=== PATIENT | female | born 1990 | race Caucasian/White ===

== ENCOUNTER 2016-11-09 08:29 | Emergency (ER) | payer MEDICAID ==
[~2016-11-09] VITALS: Ht 162.6 cm; Wt 53.5 kg
[2016-11-09 08:30] VITALS: Ht 162.6 cm; Wt 53.5 kg
[2016-11-09 09:02] LABS: ADD UMIC NO; UR BILIRUBIN (Dip) NEGATIVE (NEGATIVE); UR BLOOD (Dip) NEGATIVE (NEGATIVE); UR CLARITY CLEAR (CLEAR); UR COLOR LT. YELLOW (YELLOW); UR GLUCOSE (Dip) NEGATIVE (NEGATIVE); UR KETONES (Dip) NEGATIVE (NEGATIVE); UR LEUKOCYTE ESTERASE (Dip) NEGATIVE (NEGATIVE); UR NITRITE (Dip) NEGATIVE (NEGATIVE); UR TOTAL PROTEIN (Dip) NEGATIVE (NEGATIVE); UR UROBILINOGEN (Dip) 0.2 E.U./dL (0.1-1.0)
[2016-11-09 09:04] LABS: ADD SCAN DIFF NO
[2016-11-09 09:08] LABS: BASOPHIL # 0.1 10^3/ul (0.0-0.1); BASOPHILS % 0.8 % (0.0-2.0); EOSINOPHILS # 0.3 10^3/ul (0.0-0.5); EOSINOPHILS % 4.5 % (0.0-7.0); HEMOGLOBIN 11.4 g/dl (12.0-16.0); LYMPHOCYTES # 1.3 10^3/ul (0.8-2.9); LYMPHOCYTES % 17.2 % (15.0-51.0); MEAN CORPUSCULAR HEMOGLOBIN 28.7 pg (29.0-33.0); MEAN CORPUSCULAR HGB CONC 34.5 g/dl (32.0-37.0); MEAN CORPUSCULAR VOLUME 83.1 fl (82.0-101.0); MEAN PLATELET VOLUME 9.2 fl (7.4-10.4); MONOCYTE # 0.3 10^3/ul (0.3-0.9); MONOCYTES % 4.5 % (0.0-11.0); NEUTROPHIL # 5.3 10^3/ul (1.6-7.5); NEUTROPHILS % 72.3 % (39.0-77.0); PLATELET COUNT 248 10^3/UL (140-415); RED BLOOD COUNT 3.97 10^6/ul (4.20-5.40); WHITE BLOOD COUNT 7.3 10^3/ul (4.8-10.8)
[2016-11-09 09:29] LABS: ALBUMIN 4.8 g/dl (3.3-4.9); ALBUMIN/GLOBULIN RATIO 1.54; BILIRUBIN,INDIRECT 0.3 mg/dl (0-1.1); BILIRUBIN,TOTAL 0.3 mg/dl (0.2-1.3); CALCIUM 9.7 mg/dl (8.4-10.2); CREATININE 0.49 mg/dl (0.44-1.00); TOTAL PROTEIN 7.9 g/dl (6.1-8.1)
--- NOTE | 2016-11-09 09:41 | ERD ---
ER Documentation Chief Complaint Date/Time DATE: 11/09/16 TIME: 09:39 Chief Complaint sent by pcp for lab works - abd pain 19 weeks HPI 25-year-old female who is 2 approximately 19 weeks comes to emergency room intermittent abdominal pain for the past 2 days. She states it is in the lower abdomen, sharp, pulling sensation in the umbilicus. She was evaluated by Dr. King and Ahsan this morning who referred her to the emergency room. She has not had any fevers, chills, vomiting or diarrhea. She does report that she has had sensitivity to multiple foods, and has had recently been eating poultry. She states that she is on multiple allergies, including bread. She denies vaginal bleeding. ROS All systems reviewed and are negative except as per history of present illness. Allergies Allergies: Coded Allergies: No Known Allergy (Unverified , 03/16/16) PMhx/Soc History of Surgery: Yes (gallbladder) Anesthesia Reaction: No Hx Neurological Disorder: No Hx Respiratory Disorders: No Hx Cardiac Disorders: No Hx Psychiatric Problems: No Hx Miscellaneous Medical Probl: No Hx Alcohol Use: No Hx Substance Use: No Hx Tobacco Use: Yes (occasional smokes hookah) Smoking Status: Never smoker Physical Exam Vitals Vital Signs Date Time Temp Pulse Resp B/P Pulse Ox O2 Delivery O2 Flow Rate FiO2 11/09/16 08:30 98.8 74 19 103/59 99 Physical Exam General: Well-developed, well-nourished. The patient appears in no acute distress. HEENT: Head is normocephalic, atraumatic. No scleral icterus. Pupils are equal , round, and reactive. Oral mucous membranes are moist. No pharyngeal erythema. Neck: Supple. Nontender. Lungs: Clear to auscultation. Normal air movement. Heart: Regular rate and rhythm. S1 and S2 are normal. No murmurs, gallops, or rubs. Abdomen: Soft, lower abdominal pain noted with palpation, there is no rebound pain, no masses, no McBurney's tenderness. Nondistended. Bowel sounds are normoactive. Extremities: No clubbing or cyanosis. Normal pulses. Moving extremities x 4. No weakness. Neurologic: Alert and oriented 3. No focal deficits. Skin: Normal turgor. No rash or lesions. Result Diagram: 11/09/1685411/09/16854 Results 24 hrs Laboratory Tests Test 11/09/16 08:50 11/09/16 08:55 Urine Color LT. YELLOW Urine Clarity CLEAR Urine pH 7.0 Urine Specific Rupert 1.010 Urine Ketones NEGATIVE Urine Nitrite NEGATIVE Urine Bilirubin NEGATIVE Urine Urobilinogen 0.2 E.U./dL Urine Leukocyte Esterase NEGATIVE Urine Hemoglobin NEGATIVE Urine Glucose NEGATIVE% Urine Total Protein NEGATIVE White Blood Count 7.310^3/ul Red Blood Count 3.9710^6/ul Hemoglobin 11.4g/dl Hematocrit 33.0% Mean Corpuscular Volume 83.1fl Mean Corpuscular Hemoglobin 28.7pg Mean Corpuscular Hemoglobin Concent 34.5g/dl Red Cell Distribution Width 14.0% Platelet Count 22577^3/UL Mean Platelet Volume 9.2fl Neutrophils % 72.3% Lymphocytes % 17.2% Monocytes % 4.5% Eosinophils % 4.5% Basophils % 0.8% Nucleated Red Blood Cells % 0.0/100WBC Neutrophils # 5.310^3/ul Lymphocytes # 1.310^3/ul Monocytes # 0.310^3/ul Eosinophils # 0.310^3/ul Basophils # 0.110^3/ul Nucleated Red Blood Cells # 0.010^3/ul Sodium Level 139mmol/L Potassium Level 4.0mmol/L Chloride Level 109mmol/L Carbon Dioxide Level 22mmol/L Anion Gap 12 Blood Urea Nitrogen 5mg/dl Creatinine 0.49mg/dl Glucose Level 81mg/dl Calcium Level 9.7mg/dl Total Bilirubin 0.3mg/dl Direct Bilirubin 0.00mg/dl Indirect Bilirubin 0.3mg/dl Aspartate Amino Transf (AST/SGOT) 19IU/L Alanine Aminotransferase (ALT/SGPT) 25IU/L Alkaline Phosphatase 41IU/L Total Protein 7.9g/dl Albumin 4.8g/dl Globulin 3.10g/dl Albumin/Globulin Ratio 1.54 Lipase 27U/L Patient: ALL TORRES : 1990 Age: 25 Sex: F MR #: [id number] DOS: 11/09/16 0848 Ordering MD: CLEMENTE KINNEY PA-C Location: [facility] Room/Bed: PROCEDURE: US OB. CLINICAL INDICATION: Size and dates , abdominal pain TECHNIQUE: Multiple sonographic images of the pelvis and gravid uterus were obtained. The images were reviewed on a PACS workstation. COMPARISON: No prior studies are available for comparison. FINDINGS: The ovaries were not visualized. There are no adnexal masses. There is a single viable intrauterine gestation. Cardiac activity is present with 146 beats per minute. There is a breech presentation. The placenta is anterior. There is no evidence for an abruption or placenta previa. There is a normal amount of amniotic fluid with a MVP = 4.3 cm. Measurements were made in order to determine age. The results are as follows: BPD = 3.9 cm HC = 15.3 cm AC = 14.4. cm FL = 2.5 cm Estimated gestational age of approximately 18 weeks and 3 days based on ultrasound measurements. Clinical age: 18 weeks and 2 days. The estimated date of delivery is 04/09/17, based on ultrasound measurements. The EFW = 247 g, 64.5%, based on LMP age. RPTAT: AA IMPRESSION: Single viable intrauterine gestation of approximately 18 weeks and 3 days based on ultrasound measurements. .Franc Clinton MD, MD Date Time Electronically viewed and signed by .Franc Clinton MD, MD on 11/09/2016 09: 53 .S/ Procedures/MDM 25-year-old female comes emergency room, she is currently comes in with mid abdominal pain for the past 2-3 days. There is no significant pain on examination, she has mild tenderness diffusely in the lower abdomen. Her pelvic ultrasound shows a single live intrauterine . All labs are unremarkable aside from mild anemia. There is no leukocytosis, transaminitis, normal lipase. Urine analysis is normal today. No signs of acute appendicitis , bowel obstruction, ovarian torsion, PID, cervicitis, placenta abruptio, previa. I have advised her to take Tylenol as needed, this is likely a dietary issue according to patient's history she has multiple joint food sensitivities. I have asked her to cut out gluten, as well as dairy products, and poultry. She is to recheck with her OB in 3-4 days. ER return precautions discussed at length. Departure Diagnosis: Primary Impression: Abdominal pain Additional Impression: Second trimester Condition: CLEMENTE Markham PA-C Nov 09, 2016 09:41
--- NOTE | 2016-11-09 09:53 | RADRPT ---
PROCEDURE: US OB. CLINICAL INDICATION: Size and dates , abdominal pain TECHNIQUE: Multiple sonographic images of the pelvis and gravid uterus were obtained. The images were reviewed on a PACS workstation. COMPARISON: No prior studies are available for comparison. FINDINGS: The ovaries were not visualized. There are no adnexal masses. There is a single viable intrauterine gestation. Cardiac activity is present with 146 beats per min vee. There is a breech presentation. The placenta is anterior. There is no evidence for an abruption or placenta previa. There is a normal amount of amniotic fluid with a MVP = 4.3 cm. Measurements were made in order to determine age. The results are as follows: BPD =3.9 cm HC =15.3 cm AC =14.4. cm FL =2.5 cm Estimated gestational age of approximately 18 weeks and 3 days based on ultrasound measurements. Clinical age: 18 weeks and 2 days. The estimated date of delivery is 04/09/17, based on ultrasound measurements. The EFW = 247 g, 64.5%, based on LMP age. RPTAT: AA IMPRESSION: Single viable intrauterine gestation of approximately 18 weeks and 3 days based on ultrasound measu rements. .Franc Clinton MD, MD Date Time Electronically viewed and signed by .Franc Clinton MD, on 11/09/2016 09:53 .S/
== END 2016-11-09 10:15 | disposition home or self-care (01) ==
LOC: FTE 08:29
DX: O26.892 Other specified pregnancy related conditions, second trimester (principal); R10.30 Lower abdominal pain, unspecified; R10.2 Pelvic and perineal pain; Z3A.18 18 weeks gestation of pregnancy
CPT/HCPCS: 36415; 76805; 80053; 81003; 83690; 84702; 85025; 86900; 86901; Z7502

== ENCOUNTER 2016-11-16 22:10 | Emergency (ER) | payer MEDICAID ==
[~2016-11-16] VITALS: Ht 160 cm; Wt 53.5 kg
[2016-11-16 22:48] VITALS: Ht 160 cm; Wt 53.5 kg
[2016-11-16] MEDS ORDERED: SOD CHLORIDE 0.9% 1,000 ML IV STA (23:06)
--- NOTE | 2016-11-16 23:24 | ERD ---
ER Documentation Chief Complaint Date/Time DATE: 11/16/16 TIME: 23:20 Chief Complaint Back and AP for a week denies bleeding 19 wks HPI Patient is a 25-year-old female who is G2 who presents to the ED with pelvic pain and mid abdominal pain 2 days. She states that she has had this pain earlier this month describes as a sharp pulling sensation however she states that the pain is gotten worse in the last 2 days. She states that she does have an OB doctor Dr. Foreman and has an appointment next week. She denies fever or chills, vomiting or diarrhea. Denies fever or chills. She states that she has had her gallbladder taken out. She denies vaginal bleeding. She has not taken any medicine for her symptoms. She denies headache or dizziness. Denies leg pain or leg swelling. ROS All systems reviewed and are negative except as per history of present illness. Medications Home Meds Active Scripts Acetaminophen* (Tylophen*) 500 Mg Capsule, 1 CAP PO Q6H Y for PAIN AND OR ELEVATED TEMP, #20 CAP Prov:KINJAL EDMONDS PA-C 11/17/16 Allergies Allergies: Coded Allergies: No Known Allergy (Unverified , 03/16/16) PMhx/Soc History of Surgery: Yes (gallbladder) Anesthesia Reaction: No Hx Neurological Disorder: No Hx Respiratory Disorders: No Hx Cardiac Disorders: No Hx Psychiatric Problems: No Hx Miscellaneous Medical Probl: No Hx Alcohol Use: No Hx Substance Use: No Hx Tobacco Use: Yes (occasional smokes hookah) Physical Exam Vitals Vital Signs Date Time Temp Pulse Resp B/P Pulse Ox O2 Delivery O2 Flow Rate FiO2 11/16/16 22:48 99.1 83 24 118/58 99 Physical Exam GENERAL: Well-developed, well-nourished female. Appears in no acute distress. HEAD: Normocephalic, atraumatic. EYES: Pupils are equally reactive bilaterally. EOMs grossly intact. No conjunctival erythema. ENT: Moist mucous membranes. No uvula deviation. No kissing tonsils. No exudates. NECK: Supple. No lymphadenopathy or thyromegaly. No meningismus. negative kernig. negative brudinski. LUNG: Clear to auscultation bilaterally. No rhonchi, wheezing, rales or coarse breath sounds. HEART: Regular rate and rhythm. No murmurs, rubs or gallops. ABDOMEN: No scars, ecchymosis or rashes noted. Soft, nontender, and nondistended. Positive bowel sounds in all four quadrants. No rebound tenderness , no guarding. (-) McBurneys point tenderness. No CVA tenderness. Tenderness in the bilateral pelvic area and umbilicus. BACK: No midline tenderness. Extremities: Equal pulses bilaterally. No peripheral clubbing, cyanosis or edema. No unilateral leg swelling. NEUROLOGIC: Alert and oriented. Moving all four extremities. 5/5 strength in all extremities. Normal speech. Steady gait. SKIN: Normal color. Warm and dry. No rashes or lesions. Capillary refill < 2 seconds Result Diagram: 11/16/16 2316 11/16/16 2316 Results 24 hrs Laboratory Tests Test 11/16/16 23:10 11/16/16 23:16 Urine Color LT. YELLOW Urine Clarity CLEAR Urine pH 5.5 Urine Specific Magna 1.010 Urine Ketones 3+ Urine Nitrite NEGATIVE Urine Bilirubin NEGATIVE Urine Urobilinogen 0.2 E.U./dL Urine Leukocyte Esterase NEGATIVE Urine Hemoglobin NEGATIVE Urine Glucose NEGATIVE% Urine Total Protein NEGATIVE White Blood Count 14.410^3/ul Red Blood Count 4.0810^6/ul Hemoglobin 11.3g/dl Hematocrit 34.5% Mean Corpuscular Volume 84.6fl Mean Corpuscular Hemoglobin 27.7pg Mean Corpuscular Hemoglobin Concent 32.8g/dl Red Cell Distribution Width 14.3% Platelet Count 85230^3/UL Mean Platelet Volume 9.5fl Neutrophils % 85.6% Lymphocytes % 8.8% Monocytes % 3.6% Eosinophils % 1.0% Basophils % 0.4% Nucleated Red Blood Cells % 0.0/100WBC Neutrophils # 12.310^3/ul Lymphocytes # 1.310^3/ul Monocytes # 0.510^3/ul Eosinophils # 0.110^3/ul Basophils # 0.110^3/ul Nucleated Red Blood Cells # 0.010^3/ul Sodium Level 140mmol/L Potassium Level 3.5mmol/L Chloride Level 108mmol/L Carbon Dioxide Level 21mmol/L Anion Gap 15 Blood Urea Nitrogen 5mg/dl Creatinine 0.46mg/dl Glucose Level 80mg/dl Calcium Level 9.8mg/dl Total Bilirubin 0.2mg/dl Direct Bilirubin 0.00mg/dl Indirect Bilirubin 0.2mg/dl Aspartate Amino Transf (AST/SGOT) 55IU/L Alanine Aminotransferase (ALT/SGPT) 32IU/L Alkaline Phosphatase 57IU/L Total Protein 8.1g/dl Albumin 4.7g/dl Globulin 3.40g/dl Albumin/Globulin Ratio 1.38 Lipase 24U/L Beta HCG, Quantitative 18220.0mIU/ml Current Medications Medications (Trade) Dose Ordered Sig/James Route PRN Reason Start Time Stop Time Status Last Admin Dose Admin Sodium Chloride (NS) 1,000 ml @ 1,000 mls/hr Q1H STAT IV 11/16/16 23:06 11/17/16 00:05 DC 11/16/16 23:32 Procedures/MDM ER COURSE: I kept the patient and/or family informed of laboratory and diagnostic imaging results throughout the emergency room course. EKG, MONITORS, & DIAGNOSTIC IMAGING: [place] [address] Radiology Main Line: [phone] DIAGNOSTIC IMAGING REPORT Patient: ALL TORRES : 1990 Age: 25 Sex: F MR #: [id number] DOS: 11/16/16 2306 Ordering MD: KINJAL EDMONDS PA-C Location: [facility] Room/Bed: PROCEDURE: Obstetrical ultrasound, limited. CLINICAL INDICATION: Pelvic pain. TECHNIQUE: Multiple sonographic images of the pelvis were obtained using transabdominal technique. Images were obtained with guajardo scale and color Doppler. The images were reviewed on a PACS workstation. COMPARISON: 11/09/2016. FINDINGS: There is a single living intrauterine gestation with the fetus in a breech presentation. heart tones of 164 beats per minute are identified. The placenta is anterior in location, grade 2. There is normal amniotic fluid volume with the maximum vertical pocket measuring 4.3 cm. There is no evidence of placenta previa or abruption. Measurements were made in order to determine age. The results are as follows: BPD = 4.33 cm HC = 16.30 cm AC = 13.72 cm FL = 2.97 cm. Estimated gestational age of approximately 19 weeks and 1 day. The estimated date of delivery is 04/11/2017. The EFW = 276 +/- 41 grams. Estimated weight percentage equals 45.3%. IMPRESSION: Single viable intrauterine gestation of approximately 19 weeks and 1 day, with an ultrasound FOX of 04/11/2017. .Duong Monte MD, MD Date Time Electronically viewed and signed by .Duong Monte MD, MD on 11/17/2016 00:33 .T/ CC: KINJAL EDMONDS PA-C LAB INTERPRETATION: CBC showed no evidence of systemic infection or severe anemia. CMP showed no evidence of electrolyte abnormalities, severe acidosis, alkalosis, renal failure , or liver disease. Lipase showed no evidence of acute pancreatitis. UA showed no evidence of leukocytes, nitrites or hematuria. Beta hCG 53452.0,RH o+ MEDICAL DECISION MAKING: This is a 25-year-old female who is G2 who presents with pelvic pain and mid abdominal pain 2 days. Vital signs were reviewed. Patient is afebrile. Patient is not hypoxic. Patient is not toxic or ill-appearing. Her ultrasound is read. Radiologist shows Single viable intrauterine gestation of approximately 19 weeks and 1 day, with an ultrasound FOX of 04/11/2017. Her AST is slightly elevated to 55 but this is not 2 times the normal limits. Low suspicion for ACS , AAA, perforated ulcer, bowel obstruction, cholecystitis, choledocholithiasis, cholangitis, pancreatitis, hepatic abscess, appendicitis, diverticulitis, gastroenteritis, hepatitis, peptic ulcer disease, HELLP syndrome. Low suspicion for ovarian torsion, PID, tuboovarian abscess, ectopic , bowel obstruction, pyelonephritis, UTI, appendicitis, cervicitis, septic , molar , HELLP syndrome, preeclampsia, eclampsia, placenta previa, placenta abruptia. No pain medication was given in the ED as patient refused all pain medication. However I reexamined patient after administration of IV fluids and she stated improvement in her symptoms and was ready to be discharged home. Patient was stable. DISCHARGE: At this time, patient is stable for discharge and outpatient management with no new complaints during the ER course. Patient was sent home with Tylenol and a copy of all laboratory and imaging studies.. I advised patient to follow-up with her OB doctor. patient will be discharged home with instructions to recheck for new or worsening symptoms such as fever, nausea, weakness, LOC and to follow up with primary care in the next 1-2 days. Patient was advised to return to the ER for any new or worsening symptoms. Plan was discussed and patient and/or family understands and agrees. Home instructions were given. Departure Diagnosis: Primary Impression: Pelvic pain during Condition: Stable KINJAL EDMONDS PA-C Nov 16, 2016 23:24
[2016-11-16 23:26] LABS: ADD UMIC NO; UR BILIRUBIN (Dip) NEGATIVE (NEGATIVE); UR BLOOD (Dip) NEGATIVE (NEGATIVE); UR CLARITY CLEAR (CLEAR); UR COLOR LT. YELLOW (YELLOW); UR GLUCOSE (Dip) NEGATIVE (NEGATIVE); UR KETONES (Dip) 3+ (NEGATIVE); UR LEUKOCYTE ESTERASE (Dip) NEGATIVE (NEGATIVE); UR NITRITE (Dip) NEGATIVE (NEGATIVE); UR TOTAL PROTEIN (Dip) NEGATIVE (NEGATIVE); UR UROBILINOGEN (Dip) 0.2 E.U./dL (0.1-1.0)
[2016-11-16 23:29] LABS: ADD SCAN DIFF NO
[2016-11-16 23:32] LABS: BASOPHIL # 0.1 10^3/ul (0.0-0.1); BASOPHILS % 0.4 % (0.0-2.0); EOSINOPHILS # 0.1 10^3/ul (0.0-0.5); HEMATOCRIT 34.5 % (37.0-47.0); HEMOGLOBIN 11.3 g/dl (12.0-16.0); LYMPHOCYTES # 1.3 10^3/ul (0.8-2.9); LYMPHOCYTES % 8.8 % (15.0-51.0); MEAN CORPUSCULAR HEMOGLOBIN 27.7 pg (29.0-33.0); MEAN CORPUSCULAR HGB CONC 32.8 g/dl (32.0-37.0); MEAN CORPUSCULAR VOLUME 84.6 fl (82.0-101.0); MEAN PLATELET VOLUME 9.5 fl (7.4-10.4); MONOCYTE # 0.5 10^3/ul (0.3-0.9); MONOCYTES % 3.6 % (0.0-11.0); NEUTROPHIL # 12.3 10^3/ul (1.6-7.5); NEUTROPHILS % 85.6 % (39.0-77.0); PLATELET COUNT 261 10^3/UL (140-415); RED BLOOD COUNT 4.08 10^6/ul (4.20-5.40); RED CELL DISTRIBUTION WIDTH 14.3 % (11.5-14.5); WHITE BLOOD COUNT 14.4 10^3/ul (4.8-10.8)
[2016-11-16 23:57] LABS: ALBUMIN 4.7 g/dl (3.3-4.9); ALBUMIN/GLOBULIN RATIO 1.38; BILIRUBIN,INDIRECT 0.2 mg/dl (0-1.1); BILIRUBIN,TOTAL 0.2 mg/dl (0.2-1.3); CALCIUM 9.8 mg/dl (8.4-10.2); CREATININE 0.46 mg/dl (0.44-1.00); POTASSIUM 3.5 mmol/L (3.5-5.1); TOTAL PROTEIN 8.1 g/dl (6.1-8.1)
--- NOTE | 2016-11-17 00:34 | RADRPT ---
PROCEDURE: Obstetrical ultrasound, limited. CLINICAL INDICATION: Pelvic pain. TECHNIQUE: Multiple sonographic images of the pelvis were obtained using transabdominal technique . Images were obtained with guajardo scale and color Doppler. The images were reviewed on a PACS works [employer]. COMPARISON: 11/09/2016. FINDINGS: There is a single living intrauterine gestation with the fetus in a breech presentation. hear t tones of 164 beats per minute are identified. The placenta is anterior in location, grade 2. The re is normal amniotic fluid volume with the maximum vertical pocket measuring 4.3 cm. There is no e vidence of placenta previa or abruption. Measurements were made in order to determine age. The results are as follows: BPD =4.33 cm HC =16.30 cm AC =13.72 cm FL =2.97 cm. Estimated gestational age of approximately 19 weeks and 1 day. The estimated date of delivery is 04/11/2017. The EFW = 276 +/- 41 grams. Estimated weight percentage equals 45.3%. IMPRESSION: Single viable intrauterine gestation of approximately 19 weeks and 1 day, with an ultrasound FOX of 04/11/2017. .Duong Monte MD, MD Date Time Electronically viewed and signed by .Duong Monte MD, MD on 11/17/2016 00:33 .T/
[2016-11-17] MEDS ORDERED: ACET500C5 PO (00:43)
== END 2016-11-17 00:54 | disposition home or self-care (01) ==
LOC: FTE 22:10
DX: O26.892 Other specified pregnancy related conditions, second trimester (principal); R10.2 Pelvic and perineal pain; Z87.891 Personal history of nicotine dependence; Z3A.19 19 weeks gestation of pregnancy
CPT/HCPCS: 36415; 76805; 80053; 81003; 83690; 84702; 85025; 86900; 86901; J7030; Z7502

== ENCOUNTER 2017-01-02 02:30 | Outpatient (CLI) | payer MEDICAID ==
[~2017-01-02] VITALS: Ht 162.6 cm; Wt 57.0 kg
[~2017-01-02 02:30] MED LIST: ACET500C5 PO
[2017-01-02 03:38] VITALS: Ht 162.6 cm; Wt 57.0 kg
[2017-01-02 03:39] VITALS: BP 114/62; PULSE 68; RESP 18
[2017-01-02] MEDS ORDERED: PREN1TAB79 PO (03:41)
[2017-01-02] MEDS ORDERED: LACTATED RINGER'S 1,000 ML IV SCH (03:48)
--- NOTE | 2017-01-02 04:50 | RADRPT ---
PROCEDURE: ULTRASOUND BIOPHYSICAL PROFILE CLINICAL INDICATION: 26-year-old female with contractions for viability. TECHNIQUE: Multiple sonographic images were obtained in order to perform a biophysical profile The images were reviewed on a PACS workstation. COMPARISON: Ultrasound OB limited November 16, 2016. FINDINGS: The cervix has a length of 3.3 cm measured transvaginally. There is a single viable intrauterine ge station. There is a vertex presentation. Cardiac activity is present at 144 beats per minute. The placenta is anterior. The results of the biophysical profile are as follows: breathing movement = 2/2 Gross body movement = 2/2 tone = 2/2 Qualitative amniotic fluid volume = 2/2 Amniotic fluid index equals 14.3 cm. This yields a biophysical profile score of 8/8. IMPRESSION: Biophysical profile score is 8/8. .Hesham Malhotra MD, Date Time Electronically viewed and signed by .Hesham Malhotra MD, on 01/02/2017 04:50 .M/
[2017-01-02 05:30] LABS: BASOPHIL # 0.1 10^3/ul (0.0-0.1); BASOPHILS % 0.6 % (0.0-2.0); EOSINOPHILS # 0.2 10^3/ul (0.0-0.5); EOSINOPHILS % 1.7 % (0.0-7.0); HEMATOCRIT 31.6 % (37.0-47.0); LYMPHOCYTES # 1.7 10^3/ul (0.8-2.9); LYMPHOCYTES % 16.9 % (15.0-51.0); MEAN CORPUSCULAR HEMOGLOBIN 29.2 pg (29.0-33.0); MEAN CORPUSCULAR HGB CONC 34.8 g/dl (32.0-37.0); MEAN CORPUSCULAR VOLUME 83.8 fl (82.0-101.0); MEAN PLATELET VOLUME 9.5 fl (7.4-10.4); MONOCYTE # 0.7 10^3/ul (0.3-0.9); MONOCYTES % 7.4 % (0.0-11.0); NEUTROPHIL # 7.2 10^3/ul (1.6-7.5); NEUTROPHILS % 72.9 % (39.0-77.0); PLATELET COUNT 253 10^3/UL (140-415); RED BLOOD COUNT 3.77 10^6/ul (4.20-5.40); RED CELL DISTRIBUTION WIDTH 13.5 % (11.5-14.5); WHITE BLOOD COUNT 9.9 10^3/ul (4.8-10.8)
[2017-01-02 05:38] LABS: ADD UMIC NO; UR ASCORBIC ACID NEGATIVE (NEGATIVE); UR BILIRUBIN (Dip) NEGATIVE (NEGATIVE); UR BLOOD (Dip) NEGATIVE (NEGATIVE); UR CLARITY CLEAR (CLEAR); UR COLOR STRAW (YELLOW); UR GLUCOSE (Dip) NEGATIVE (NEGATIVE); UR KETONES (Dip) NEGATIVE (NEGATIVE); UR LEUKOCYTE ESTERASE (Dip) NEGATIVE Leu/ul (NEGATIVE); UR NITRITE (Dip) NEGATIVE (NEGATIVE); UR SPECIFIC GRAVITY (Dip) 1.003 (1.003-1.030); UR TOTAL PROTEIN (Dip) NEGATIVE (NEGATIVE); UR UROBILINOGEN (Dip) NEGATIVE (NEGATIVE)
[2017-01-02 06:04] LABS: ALBUMIN 3.8 g/dl (3.3-4.9); ALBUMIN/GLOBULIN RATIO 1.11; BILIRUBIN,INDIRECT 0.2 mg/dl (0-1.1); BILIRUBIN,TOTAL 0.2 mg/dl (0.2-1.3); CALCIUM 9.3 mg/dl (8.4-10.2); CREATININE 0.43 mg/dl (0.44-1.00); POTASSIUM 3.8 mmol/L (3.5-5.1); TOTAL PROTEIN 7.2 g/dl (6.1-8.1)
[2017-01-22] MEDS ORDERED: INDOS PO (09:53)
[2017-01-22] MEDS ORDERED: INDO25CA25 PO (11:15)
[2017-01-22] MEDS ORDERED: PRO20 PO (11:20)
--- NOTE | 2017-03-19 17:32 | PN ---
Triage Information Date/Time Reason for visit: Abd/pelvic pain Weeks of Gestation 26weeks /Para Diabetes: none Hypertention: none Objective Heart Rate: 140's Contractions: None Disposition: Discharge Assessment/Plan IUP26w pelvic pain Plan discharge ARASELI GONZALES MD Mar 19, 2017 17:32
--- NOTE | 2017-03-19 17:38 | PN ---
Triage Information Date/Time Reason for visit: Abd/pelvic pain Weeks of Gestation 26weeks /Para Diabetes: none Hypertention: none Objective Heart Rate: 140's Contractions: None Disposition: Discharge Assessment/Plan A IUP 26w pelvic pain ligamenty pain P Dischage home RTH prn in stable condition ARASELI GONZALES MD Mar 19, 2017 17:38
== END 2017-01-02 07:30 | disposition home or self-care (01) ==
LOC: OBT 02:30 → L-D 02:30 → OBT 07:30
PROVIDERS: ATTEND Obstetrics & Gynecology
DX: O26.892 Other specified pregnancy related conditions, second trimester (principal); R10.2 Pelvic and perineal pain; Z3A.26 26 weeks gestation of pregnancy
CPT/HCPCS: 36415; 76817; 76818; 80053; 81003; 85025; 87086; 96360; 96361; J7120; Z7500; G0463

== ENCOUNTER 2017-01-02 21:41 | Outpatient (CLI) | payer MEDICAID ==
[~2017-01-02] VITALS: Ht 162.6 cm; Wt 57.6 kg
[~2017-01-02 21:41] MED LIST changes: +PREN1TAB79 PO
[2017-01-02 22:07] VITALS: Ht 162.6 cm; Wt 57.6 kg
--- NOTE | 2017-01-02 23:25 | PN ---
Triage Information Date/Time January 02, 2017 Reason for visit: Abd/pelvic pain Weeks of Gestation 26 weeks /Para Diabetes: none Hypertention: none Additional information 26-year-old with IUP at 26 weeks presented with complaint of lower abdominal pain when changing in position and with moving. Pain is sharp and lasts about 4 minutes and randomly occurs and resolves. Patient reports that the pain occurs when she is more anxious and had anxiety and associated with pelvic pressure. She denies any urinary symptoms denies any leaking of fluid vaginal bleeding or uterine contractions. Denies any complications during her course. Patient has been seen today in triage this morning with the same symptoms. Had extensive study including urine analysis CBC CMP as well as cervical length that were all unremarkable. Cervical length was 3.3. CBC UA and CMP was within normal limits. Objective Heart Rate: 130's Contractions: None Exam General appearance: Alert and oriented 4. Patient does not appear to be in any acute distress. Abdomen: Soft, gravid, fundal height consistent with gestational age. No tenderness, no rebound tenderness, no guarding, no rigidity, no CVA tenderness, NST: Appropriate for gestational age Speculum examination: Cervix closed posterior and long. no abnormal vaginal discharge or bleeding noted Results/Medications Imaging Results ROCEDURE: ULTRASOUND BIOPHYSICAL PROFILE CLINICAL INDICATION: 26-year-old female with contractions for viability. TECHNIQUE: Multiple sonographic images were obtained in order to perform a biophysical profile The images were reviewed on a PACS workstation. COMPARISON: Ultrasound OB limited November 16, 2016. FINDINGS: The cervix has a length of 3.3 cm measured transvaginally. There is a single viable intrauterine gestation. There is a vertex presentation. Cardiac activity is present at 144 beats per minute. The placenta is anterior. The results of the biophysical profile are as follows: breathing movement = 2/2 Gross body movement = 2/2 tone = 2/2 Qualitative amniotic fluid volume = 2/2 Amniotic fluid index equals 14.3 cm. This yields a biophysical profile score of 8/8. IMPRESSION: Biophysical profile score is 8/8. Disposition: Discharge Assessment/Plan IUP at 26 weeks Lower abdominal pain consistent with round ligament pain No evidence of labor No evidence of UTI Anxiety Plan: patient was reassured Recommended belts and modified rest labor precaution and kick count discussed Deep breathing technique recommended Offered anti-anxiety medication declined/ Advised the patient have a follow-up within 24-48 hours with her OB office Patient verbalized understanding ZURI LINDSAY MD Jan 02, 2017 23:25
--- NOTE | 2017-01-02 23:26 | TRIAGE ---
OB Triage Datetime Report Generated by CPN: 01/02/2017 23:25 Datetime: 01/02/2017 23:25 Stage of : OB Triage Datetime: 01/02/2017 23:22 Monitor Mode: External Pattern: Normal: <= 5 Contractions in 10 Minutes Heart Rate FHR Baseline Rate: 140 Monitor Mode: External US FHR Baseline Changes: No Baseline Change Variability: Moderate 6-25 bpm Accelerations: 10X10 Comments: APPROPRIATE FOR GA Datetime: 01/02/2017 22:01 Assessment Type: Triage Time of Arrival: 01/02/2017 21:32 EGA: 26.0 Arrived By: Wheelchair Arrived From: Home Chief Complaint: LOWER ABD PRESSURE Movement: Present Contractions: Denies/Absent Rupture of Membranes: Denies Vaginal Discharge: Denies Recent Sexual Intercouse: Denies Abdominal Trauma: Not Applicable Patient Complaints: Other Time Provider Notified: 01/02/2017 22:00 Provider Notified: ARDALAN Initial Plan: EFM, CALL OB Maternal Assessment Level of Consciousness: Fully Conscious Headache: Denies Blurred Vision: No Respiratory Effort: Unlabored; Regular Rhythm; Equal Expansion Nausea/Vomiting: Denies RUQ Epigastric Pain: Denies Facial Edema: None Fall Risk Assessment History of Falling: (0) No Secondary Diagnosis: (0) No Ambulatory Aid: (0) Bedrest/Nurse Assist IV Therapy: (0) No Gait: (0) Normal/Bedrest/Immobile Mental Status: (0) Oriented to Own Ability Fall Score: 0 Fall Risk Score Definition: No Risk: No action required Datetime: 01/02/2017 07:01 Arrived By: Wheelchair Arrived From: Home Datetime: 01/02/2017 06:46 Stage of : OB Triage Datetime: 01/02/2017 06:30 Labor Evaluation Frequency: 0 Monitor Mode: External Heart Rate FHR Baseline Rate: 135 Monitor Mode: External US FHR Baseline Changes: No Baseline Change Variability: Moderate 6-25 bpm Accelerations: 15X15 Decelerations: None Category: Category I Datetime: 01/02/2017 05:30 Labor Evaluation Frequency: 2/hr Monitor Mode: External Duration (sec)2399: 50-60 Quality: Mild Pattern: Normal: <= 5 Contractions in 10 Minutes Resting Tone [place]: Relaxed Heart Rate FHR Baseline Rate: 135 Monitor Mode: External US FHR Baseline Changes: No Baseline Change Variability: Moderate 6-25 bpm Accelerations: 15X15 Decelerations: None Category: Category I Datetime: 01/02/2017 05:10 Vaginal Exam Dilatation (cms): 0.0 Effacement (%): 0 Station: -3 Exam By: Parvez GARRETT RN Vaginal Bleeding: None Cervix, Consistency: Firm Cervix, Position: Posterior Datetime: 01/02/2017 04:30 Labor Evaluation Frequency: 1-5 Monitor Mode: External Duration (sec)2399: 30-50 Quality: Mild Pattern: Normal: <= 5 Contractions in 10 Minutes Resting Tone [place]: Relaxed Heart Rate FHR Baseline Rate: 135 Monitor Mode: External US FHR Baseline Changes: No Baseline Change Variability: Moderate 6-25 bpm Accelerations: 15X15 Decelerations: None Category: Category I Datetime: 01/02/2017 03:25 Stage of : OB Triage Time of Arrival: 01/02/2017 02:21 EGA: 26.0 Arrived By: Wheelchair Arrived From: Home Chief Complaint: ABDOMINAL PAIN STRARTED @ 2200 Movement: Present Contractions: Irregular Rupture of Membranes: Denies Vaginal Bleeding: None Vaginal Discharge: Denies Recent Sexual Intercouse: Denies Abdominal Trauma: Not Applicable Patient Complaints: None Time Provider Notified: 01/02/2017 03:44 Provider Notified: ASHLEY Initial Plan: CALL JANINA COLUNGA Maternal Assessment Level of Consciousness: Fully Conscious DTR's/Clonus: DTRs 2+; No Clonus Headache: Denies Blurred Vision: No Respiratory Effort: Unlabored; Regular Rhythm; Equal Expansion Breath Sounds, Left: Clear and Equal Breath Sounds, Right: Clear and Equal Nausea/Vomiting: Denies RUQ Epigastric Pain: Denies Lower Extremities Edema: None Degree: None Upper Extremities Edema: None Degree: None Facial Edema: None Temperature Route: Oral Fall Risk Assessment History of Falling: (0) No Secondary Diagnosis: (0) No Ambulatory Aid: (0) Bedrest/Nurse Assist IV Therapy: (0) No Gait: (0) Normal/Bedrest/Immobile Mental Status: (0) Oriented to Own Ability Fall Score: 0 Fall Risk Score Definition: No Risk: No action required Monitor Mode: External Monitor Mode: External US Pain Assessment Pain Scale: 8 Pain Presence: Intermittent Pain Type: Contraction Pain Location: Abdomen; Back Datetime: 01/02/2017 03:23 Membrane Status: Intact
== END 2017-01-02 23:25 | disposition home or self-care (01) ==
LOC: OBT 21:41 → L-D 21:43 → OBT 23:25
PROVIDERS: ATTEND Obstetrics & Gynecology
DX: O26.892 Other specified pregnancy related conditions, second trimester (principal); Z3A.26 26 weeks gestation of pregnancy; R10.2 Pelvic and perineal pain; R10.30 Lower abdominal pain, unspecified; O99.342 Other mental disorders complicating pregnancy, second trimester
CPT/HCPCS: G0463

== ENCOUNTER 2017-01-18 19:47 | Outpatient (CLI) | payer MEDICAID ==
[~2017-01-18] VITALS: Ht 162.6 cm; Wt 57.5 kg
[~2017-01-18 19:47] MED LIST changes: -ACET500C5 PO
[2017-01-18 20:28] VITALS: BP 112/55; PULSE 84; RESP 18
[2017-01-18] MEDS ORDERED: LACTATED RINGER'S 1,000 ML IV SCH (21:07)
[2017-01-18 21:16] LABS: ADD UMIC NO; UR ASCORBIC ACID NEGATIVE (NEGATIVE); UR BILIRUBIN (Dip) NEGATIVE (NEGATIVE); UR BLOOD (Dip) NEGATIVE (NEGATIVE); UR CLARITY CLEAR (CLEAR); UR COLOR STRAW (YELLOW); UR GLUCOSE (Dip) NEGATIVE (NEGATIVE); UR KETONES (Dip) NEGATIVE (NEGATIVE); UR LEUKOCYTE ESTERASE (Dip) NEGATIVE Leu/ul (NEGATIVE); UR NITRITE (Dip) NEGATIVE (NEGATIVE); UR SPECIFIC GRAVITY (Dip) 1.003 (1.003-1.030); UR TOTAL PROTEIN (Dip) NEGATIVE (NEGATIVE); UR UROBILINOGEN (Dip) NEGATIVE (NEGATIVE)
[2017-01-18] MEDS ORDERED: TERBUTALINE 1 MG/ML INJ SC ONE ×2 (21:30→22:00)
--- NOTE | 2017-01-18 22:37 | RADRPT ---
PROCEDURE: Obstetrical ultrasound greater than 14 weeks CLINICAL INDICATION: Contractions. Evaluate cervical length TECHNIQUE: Real time sonographic imaging of the gravid uterus is performed transabdominally and mu ltiple static guajardo scale and Doppler images are submitted for review as are measurements. The image s are reviewed on the PACS. COMPARISON: 01/02/2017 FINDINGS: The cervical os is closed with a normal cervical length of 3.57 cm. There is a single living intrauterine gestation in cephalic presentation. The heart beat is estimated at 132 bpm. Placenta is anterior and grade 1. There is no evidence of placenta previa or abruption. RPTAT:HJJR IMPRESSION: 1. Single viable intrauterine gestation in cephalic presentation the cervical length estimated at 3. 57 cm, previously measured at 3.26 cm on the study of 01/02/2017. 2. Anterior grade 1 placenta. Physician Ravi Date Time Electronically viewed and signed by Physician Ravi on 01/18/2017 22:37 /
[2017-01-18 22:39] LABS: BASOPHILS % 0.4 % (0.0-2.0); EOSINOPHILS # 0.2 10^3/ul (0.0-0.5); EOSINOPHILS % 1.4 % (0.0-7.0); HEMATOCRIT 31.2 % (37.0-47.0); HEMOGLOBIN 10.7 g/dl (12.0-16.0); LYMPHOCYTES # 1.5 10^3/ul (0.8-2.9); LYMPHOCYTES % 13.4 % (15.0-51.0); MEAN CORPUSCULAR HEMOGLOBIN 28.4 pg (29.0-33.0); MEAN CORPUSCULAR HGB CONC 34.3 g/dl (32.0-37.0); MEAN CORPUSCULAR VOLUME 82.8 fl (82.0-101.0); MEAN PLATELET VOLUME 9.4 fl (7.4-10.4); MONOCYTE # 0.5 10^3/ul (0.3-0.9); MONOCYTES % 4.3 % (0.0-11.0); PLATELET COUNT 250 10^3/UL (140-415); RED BLOOD COUNT 3.77 10^6/ul (4.20-5.40); RED CELL DISTRIBUTION WIDTH 12.9 % (11.5-14.5); WHITE BLOOD COUNT 11.1 10^3/ul (4.8-10.8)
--- NOTE | 2017-01-19 03:50 | PN ---
Triage Information Date/Time 01/19/17 Reason for visit: sob Weeks of Gestation 28w2d /Para A1 Diabetes: none Hypertention: none Objective Vital Signs Date Time Temp Pulse Resp B/P Pulse Ox O2 Delivery O2 Flow Rate FiO2 01/18/17 20:28 98.7 84 18 112/55 Room Air Intake and Output 01/18/17 01/18/17 01/19/17 15:00 23:00 07:00 Intake Total 1000 ml 1000 ml Balance 1000 ml 1000 ml Heart Rate: 130's Heart Rate Comments reactive Contractions: < 5 Minutes Apart Exam VE closed/long/-3 Results/Medications Result Diagram: 01/18/172133 Results 24 hrs Laboratory Tests Test 01/18/17 19:50 01/18/17 21:34 Urine Color STRAW Urine Clarity CLEAR Urine pH 8.0 Urine Specific [place] 1.003 Urine Ketones NEGATIVE Urine Nitrite NEGATIVE Urine Bilirubin NEGATIVE Urine Urobilinogen NEGATIVE Urine Leukocyte Esterase NEGATIVE Urine Hemoglobin NEGATIVE Urine Glucose NEGATIVE Urine Total Protein NEGATIVE White Blood Count 11.1 H Red Blood Count 3.77 L Hemoglobin 10.7 L Hematocrit 31.2 L Mean Corpuscular Volume 82.8 Mean Corpuscular Hemoglobin 28.4 L Mean Corpuscular Hemoglobin Concent 34.3 Red Cell Distribution Width 12.9 Platelet Count 250 Mean Platelet Volume 9.4 Neutrophils % 80.0 H Lymphocytes % 13.4 L Monocytes % 4.3 Eosinophils % 1.4 Basophils % 0.4 Nucleated Red Blood Cells % 0.0 Neutrophils # (Manual) 9 H Lymphocytes # 1.5 Monocytes # 0.5 Eosinophils # 0.2 Basophils # 0.0 Nucleated Red Blood Cells # 0.0 Medications terbutaline x2 oder by her OB with IV hydration Imaging Results CVL 3.6 longer than previous measurement 3wks ago Disposition: Discharge Assessment/Plan IUP 28w2d R/O PTL,NIL resolved, under emotional stree due to family relationship ARASELI GONZALES MD Jan 19, 2017 03:50
== END 2017-01-19 00:21 | disposition home or self-care (01) ==
LOC: OBT 19:47 → L-D 19:49 → OBT 01-19 00:21
PROVIDERS: ATTEND Obstetrics & Gynecology
DX: O26.893 Other specified pregnancy related conditions, third trimester (principal); Z3A.28 28 weeks gestation of pregnancy; R06.02 Shortness of breath
CPT/HCPCS: 36415; 76817; 81003; 85025; 87086; 96360; 96361; 96372; J3105; J7120; Z7500; G0463

== ENCOUNTER 2017-02-04 01:03 | Outpatient (CLI) | payer MEDICAID ==
[~2017-02-04] VITALS: Ht 162.6 cm; Wt 58.8 kg
[~2017-02-04 01:03] MED LIST changes: +INDO25CA25 PO; +PRO20 PO
[2017-02-04 01:41] VITALS: Ht 162.6 cm; Wt 58.8 kg
[2017-02-04 02:21] VITALS: BP 112/59; PULSE 79; RESP 18
[2017-02-04] MEDS ORDERED: IRON1TAB78 PO (02:24)
[2017-02-04] MEDS ORDERED: FOLI-49 PO (02:24)
--- NOTE | 2017-02-04 02:41 | RADRPT ---
PROCEDURE: Obstetrical ultrasound CLINICAL INDICATION: Pre-term labor. TECHNIQUE: Transvaginal sonographic images of the uterus obtained after first trimester, greater than 14 weeks gestation. Single intrauterine gestation present. COMPARISON: 01/21/2017 FINDINGS: The cervix is closed with a length of 2.9 cm. IMPRESSION: The cervix is closed with a length of 2.9 cm. RPTAT: AADD .Enrrique Mckinney MD, MD Date Time Electronically viewed and signed by .Enrrique Mckinney MD, on 02/04/2017 02:41 .B/
--- NOTE | 2017-02-04 02:43 | RADRPT ---
PROCEDURE: Obstetrical ultrasound for biophysical profile CLINICAL INDICATION: Biophysical profile. . TECHNIQUE: Obstetrical ultrasound of the uterus for biophysical profile. Transabdominal views are obtained. COMPARISON: 01/21/2017 FINDINGS: Single intrauterine gestation. Presentation: Cephalic. Placenta: Anterior. No evidence of placental abruption. No evidence of placenta previa. breathing movement = 2/2 tone = 2/2 motion = 2/2 JEFFY = 2/2 JEFFY = 12.5 cm heart rate: 154 beats per minute IMPRESSION: Single intrauterine gestation. Biophysical profile 01/08 RPTAT: AADD .Enrrique Mckinney MD, MD Date Time Electronically viewed and signed by .Enrrique Mckinney MD, on 02/04/2017 02:42 .B/
[2017-02-04] MEDS ORDERED: ACETAMINOPHEN 500 MG TAB PO STA (03:17)
[2017-02-04] MEDS ORDERED: ACETAMINOPHEN 325 MG TAB ONE (03:22)
[2017-02-04 03:24] LABS: ADD UMIC NO; UR ASCORBIC ACID 20 mg/dL (NEGATIVE); UR BILIRUBIN (Dip) NEGATIVE (NEGATIVE); UR BLOOD (Dip) NEGATIVE (NEGATIVE); UR CLARITY CLEAR (CLEAR); UR COLOR YELLOW (YELLOW); UR GLUCOSE (Dip) NEGATIVE (NEGATIVE); UR KETONES (Dip) NEGATIVE (NEGATIVE); UR LEUKOCYTE ESTERASE (Dip) NEGATIVE Leu/ul (NEGATIVE); UR NITRITE (Dip) NEGATIVE (NEGATIVE); UR SPECIFIC GRAVITY (Dip) 1.011 (1.003-1.030); UR TOTAL PROTEIN (Dip) NEGATIVE (NEGATIVE); UR UROBILINOGEN (Dip) NEGATIVE (NEGATIVE)
[2017-02-04] MEDS ORDERED: LACTATED RINGER'S 1,000 ML IV ONE (03:30)
--- NOTE | 2017-02-04 06:48 | PN ---
Triage Information Date/Time 02/04/1709/17/634 Reason for visit: Abd/pelvic pain Weeks of Gestation 30w3d /Para A1(sab) Diabetes: none Hypertention: none Additional information 01/20/17 she was admitted to antepartum ,magnesium sulfate ,bmz? sent home with procardia which was discontinued by pt right after. CVL 3.5 pain level 9/10 even when the baby move ,patient c/o pain, family problem with in-law Objective Vital Signs Date Time Temp Pulse Resp B/P Pulse Ox O2 Delivery O2 Flow Rate FiO2 02/04/17 02:21 98.2 79 18 112/59 Room Air Heart Rate: 130's Exam VE closed/long/high Results/Medications Results 24 hrs Laboratory Tests Test 02/04/17 01:30 Urine Color YELLOW Urine Clarity CLEAR Urine pH 7.0 Urine Specific [place] 1.011 Urine Ketones NEGATIVE Urine Nitrite NEGATIVE Urine Bilirubin NEGATIVE Urine Urobilinogen NEGATIVE Urine Leukocyte Esterase NEGATIVE Urine Hemoglobin NEGATIVE Urine Glucose NEGATIVE Urine Total Protein NEGATIVE Medications IV hydration Imaging Results CVL 2.9 BPP / JEFFY 12.5 Disposition: Discharge Assessment/Plan IUP 30w3d pelvic pain multiple visit to hosp at least I saw her X3 Plan discharge home ,f/u with her OB ARASELI GONZALES MD Feb 04, 2017 06:45
== END 2017-02-04 04:52 | disposition home or self-care (01) ==
LOC: OBT 01:03 → L-D 01:05 → OBT 04:52
PROVIDERS: ATTEND Obstetrics & Gynecology
DX: O26.893 Other specified pregnancy related conditions, third trimester (principal); Z3A.30 30 weeks gestation of pregnancy; R10.2 Pelvic and perineal pain
CPT/HCPCS: 36415; 76817; 76818; 81003; 96360; J7120; Z7500; Z7610; G0463

== ENCOUNTER 2017-02-07 17:37 | Outpatient (CLI) | payer MEDICAID ==
[~2017-02-07] VITALS: Ht 162.6 cm; Wt 57.5 kg
[~2017-02-07 17:37] MED LIST changes: +FOLI-49 PO; -INDO25CA25 PO; +IRON1TAB78 PO; -PRO20 PO
[2017-02-07 18:16] VITALS: BP 110/59; PULSE 84; Ht 162.6 cm; Wt 57.5 kg
[2017-02-07 19:00] LABS: ADD UMIC NO; UR ASCORBIC ACID NEGATIVE (NEGATIVE); UR BILIRUBIN (Dip) NEGATIVE (NEGATIVE); UR BLOOD (Dip) NEGATIVE (NEGATIVE); UR CLARITY CLEAR (CLEAR); UR COLOR YELLOW (YELLOW); UR GLUCOSE (Dip) NEGATIVE (NEGATIVE); UR KETONES (Dip) NEGATIVE (NEGATIVE); UR LEUKOCYTE ESTERASE (Dip) NEGATIVE Leu/ul (NEGATIVE); UR NITRITE (Dip) NEGATIVE (NEGATIVE); UR TOTAL PROTEIN (Dip) NEGATIVE (NEGATIVE); UR UROBILINOGEN (Dip) NEGATIVE (NEGATIVE)
--- NOTE | 2017-02-07 19:12 | RADRPT ---
PROCEDURE: US cervix CLINICAL INDICATION: labor TECHNIQUE: Limited OB ultrasound was performed to evaluate the cervix COMPARISON: 02/04/2017 FINDINGS: There is a single live intrauterine . Normal cardiac activity is identified at a rat e of 156 beats per minute. presentation is cephalic. Placenta is anterior grade 1 to II. The cervix is closed and measures 3.8 cm in length. No funneling is identified IMPRESSION: Cervix is closed and measures 3.8 cm in length RPTAT: HH .Mayur Joseph MD, MD Date Time Electronically viewed and signed by .Mayur Joseph MD, on 02/07/2017 19:12 .W/
--- NOTE | 2017-02-07 19:18 | CONS ---
Date/Time of Note Date/Time of Note DATE: 02/07/17 TIME: 19:13 Consultation Date/Type/Reason Admit Date/Time February 07, 2070 OB triage consult This patient is a 26 years old primigravida with estimated date of confinement of 04/09/2017 which makes her 30 weeks and 6 days now. She came to triage area again complaining of pain uterine contractions. She was seen in the past she received 2 time injection of betamethasone 2 weeks ago she was hospitalized again about 3 weeks ago for prevention of contraction she was placed on Procardia for cervical length was 2.9 last week however tonight is reported 3.1 on examination she is a well-developed well-nourished lady in no acute distress. Her vital signs are stable with blood pressure 110/59, pulse rate 84, respiration 18, and temperature 98. Abdomen is soft we do not have much of the contractions heart tone is normal heart tracing is normal with variability occasional acceleration no decelerations Laboratory Tests Test 02/07/17 18:20 Urine Color YELLOW Urine Clarity CLEAR Urine pH 8.0 Urine Specific [place] 1.010 Urine Ketones NEGATIVEmg/dL Urine Nitrite NEGATIVEmg/dL Urine Bilirubin NEGATIVEmg/dL Urine Urobilinogen NEGATIVEmg/dL Urine Leukocyte Esterase NEGATIVELeu/ul Urine Hemoglobin NEGATIVEmg/dL Urine Glucose NEGATIVEmg/dL Urine Total Protein NEGATIVEmg/dl Initial Consult Date Reason for Consultation An ultrasound study was performed tonight which reveals the cervical length of 3.8 cm with lack of contractions and basically no change in cervical length she would be discharged home to be followed in the clinic in a few days Exam/Review of Systems Vital Signs Vitals Vital Signs Date Time Temp Pulse Resp B/P Pulse Ox O2 Delivery O2 Flow Rate FiO2 02/07/17 18:16 98.0 84 110/59 Results Results 24 hrs Laboratory Tests Test 02/07/17 18:20 Urine Color YELLOW Urine Clarity CLEAR Urine pH 8.0 Urine Specific [place] 1.010 Urine Ketones NEGATIVE Urine Nitrite NEGATIVE Urine Bilirubin NEGATIVE Urine Urobilinogen NEGATIVE Urine Leukocyte Esterase NEGATIVE Urine Hemoglobin NEGATIVE Urine Glucose NEGATIVE Urine Total Protein NEGATIVE LEONARDO JAVED MD Feb 07, 2017 19:18
--- NOTE | 2017-02-07 22:16 | TRIAGE ---
OB Triage Datetime Report Generated by CPN: 02/07/2017 22:16 Datetime: 02/07/2017 21:42 Chief Complaint: PAIN Datetime: 02/07/2017 21:21 Stage of : OB Triage Maternal Assessment Level of Consciousness: Fully Conscious Labor Evaluation Frequency: 2-10 Monitor Mode: External Duration (sec)2399: 30-40 Quality: Mild Pattern: Normal: <= 5 Contractions in 10 Minutes Resting Tone [place]: Relaxed Heart Rate FHR Baseline Rate: 130 Monitor Mode: External US Variability: Moderate 6-25 bpm Accelerations: 15X15 Decelerations: None Category: Category I Pain Assessment Pain Scale: 7 Pain Presence: Intermittent Pain Type: Cramping Pain Location: Abdomen; Perineum Pain Goal: 3 Pain Relief Measures: Comfort Measures Datetime: 02/07/2017 20:30 Stage of : OB Triage Maternal Assessment Level of Consciousness: Fully Conscious Labor Evaluation Frequency: OCCASS Monitor Mode: External Duration (sec)2399: 30-40 Quality: Mild Pattern: Normal: <= 5 Contractions in 10 Minutes Resting Tone [place]: Relaxed Heart Rate FHR Baseline Rate: 135 Monitor Mode: External US Variability: Moderate 6-25 bpm Accelerations: 15X15 Decelerations: None Category: Category I Pain Assessment Pain Scale: 7 Pain Presence: Intermittent Pain Type: Cramping Pain Location: Abdomen; Perineum Pain Goal: 3 Pain Relief Measures: Comfort Measures Datetime: 02/07/2017 19:40 Stage of : OB Triage Maternal Assessment Level of Consciousness: Fully Conscious Labor Evaluation Frequency: [place]CC[place] Monitor Mode: External Duration (sec)2399: 40-50 Quality: Mild Pattern: Normal: <= 5 Contractions in 10 Minutes Resting Tone [place]: Relaxed Heart Rate FHR Baseline Rate: 140 Monitor Mode: External US Variability: Moderate 6-25 bpm Accelerations: 15X15 Decelerations: None Category: Category I Pain Assessment Pain Scale: 7 Pain Presence: Intermittent Pain Type: Cramping Pain Location: Abdomen; Perineum Pain Goal: 3 Pain Relief Measures: Comfort Measures Datetime: 02/07/2017 18:38 Stage of : OB Triage Datetime: 02/07/2017 18:12 Stage of : OB Triage Assessment Type: Triage Maternal Assessment Level of Consciousness: Fully Conscious DTR's/Clonus: DTRs 2+; No Clonus Headache: Denies Blurred Vision: No Respiratory Effort: Unlabored; Regular Rhythm; Equal Expansion Breath Sounds, Left: Clear and Equal Breath Sounds, Right: Clear and Equal Nausea/Vomiting: Denies RUQ Epigastric Pain: Denies Facial Edema: None Temperature Route: Axillary Fall Risk Assessment History of Falling: (0) No Secondary Diagnosis: (0) No Ambulatory Aid: (0) Bedrest/Nurse Assist IV Therapy: (0) No Gait: (0) Normal/Bedrest/Immobile Mental Status: (0) Oriented to Own Ability Fall Score: 0 Fall Risk Score Definition: No Risk: No action required Labor Evaluation Frequency: X1 Monitor Mode: External Duration (sec)2399: 50 Quality: Mild Pattern: Normal: <= 5 Contractions in 10 Minutes Resting Tone [place]: Relaxed Heart Rate FHR Baseline Rate: 145 Monitor Mode: External US Variability: Moderate 6-25 bpm Decelerations: None Pain Assessment Pain Scale: 8 Pain Presence: Intermittent Pain Type: Cramping Pain Location: Abdomen; Perineum Pain Goal: 3 Pain Relief Measures: Comfort Measures Datetime: 02/07/2017 18:07 Time of Arrival: 02/07/2017 17:30 EGA: 30.6 Arrived By: Ambulatory Arrived From: Home Chief Complaint: C/O UC'S LAST NIGHT AND TODAY, DENIES BLEEDING OR LEAKING OF FLUID. ADMITTED 2 WE EKS AGO DISCHARGED ON PROCARDIA, NO LONGER TAKEN Movement: Present Contractions: Irregular Contractions: IRREGULAR Rupture of Membranes: Denies Vaginal Bleeding: None Vaginal Discharge: Denies Recent Sexual Intercouse: Denies Abdominal Trauma: Not Applicable Patient Complaints: Cramping Time Provider Notified: 02/07/2017 18:38 Provider Notified: foroohar Initial Plan: MONITOR, u/a, cl Datetime: 02/04/2017 04:52 Stage of : OB Triage Datetime: 02/04/2017 01:35 Stage of : OB Triage Datetime: 02/04/2017 01:30 Fall Score: 0 Fall Risk Score Definition: No Risk: No action required Datetime: 02/04/2017 01:05 EGA: 30.3 Vaginal Bleeding: None Datetime: 01/22/2017 07:47 Fall Score: 20 Fall Risk Score Definition: No Risk: No action required Datetime: 01/21/2017 07:56 Fall Score: 20 Fall Risk Score Definition: No Risk: No action required Datetime: 01/20/2017 20:19 Fall Score: 20 Fall Risk Score Definition: No Risk: No action required Datetime: 01/20/2017 07:11 Fall Score: 20 Fall Risk Score Definition: No Risk: No action required Datetime: 01/19/2017 19:42 Fall Score: 20 Fall Risk Score Definition: No Risk: No action required Datetime: 01/19/2017 08:30 Fall Score: 0 Fall Risk Score Definition: No Risk: No action required Datetime: 01/18/2017 20:32 EGA: 28.0 Datetime: 01/02/2017 22:01 EGA: 25.5 Fall Score: 0 Fall Risk Score Definition: No Risk: No action required Datetime: 01/02/2017 03:25 EGA: 25.5 Fall Score: 0 Fall Risk Score Definition: No Risk: No action required
--- NOTE | 2017-02-07 22:42 | PN ---
Triage Information Date/Time 02/07/1712/17/2234 Reason for visit: Abd/pelvic pain Weeks of Gestation 30w6d /Para primigravida Diabetes: none Hypertention: none Objective Vital Signs Date Time Temp Pulse Resp B/P Pulse Ox O2 Delivery O2 Flow Rate FiO2 02/07/17 18:16 98.0 84 110/59 Heart Rate: 140's Contractions: < 5 Minutes Apart Exam EFM u.c mild 2-7min Results/Medications Results 24 hrs Laboratory Tests Test 02/07/17 18:20 Urine Color YELLOW Urine Clarity CLEAR Urine pH 8.0 Urine Specific [place] 1.010 Urine Ketones NEGATIVE Urine Nitrite NEGATIVE Urine Bilirubin NEGATIVE Urine Urobilinogen NEGATIVE Urine Leukocyte Esterase NEGATIVE Urine Hemoglobin NEGATIVE Urine Glucose NEGATIVE Urine Total Protein NEGATIVE Imaging Results CVL 3.8 Disposition: Discharge Assessment/Plan A iUP 30W6D PELVIC PAIN R/o PTL Plan oral hydration ( patient wants to drink her own water which will be brought by ) patient well enough to go home and requested to go home since is waiting downstairs ARASELI GONZALES MD Feb 07, 2017 22:42
== END 2017-02-07 21:33 | disposition home or self-care (01) ==
LOC: OBT 17:37 → L-D 17:38 → OBT 21:33
PROVIDERS: ATTEND Obstetrics & Gynecology
DX: O26.893 Other specified pregnancy related conditions, third trimester (principal); Z3A.30 30 weeks gestation of pregnancy; R10.2 Pelvic and perineal pain
CPT/HCPCS: 76817; 81003; Z7500; G0463